=== PATIENT | female | born 1995 | race Hispanic/Latino ===

== ENCOUNTER → 2020-08-26 15:47 | Outpatient (CLI) | payer OTHER, SELFPAY ==
[2020-08-26 17:25] LABS: Hemoglobin A1C% w Est Avg Glu 5.9 % (4.0-6.0)
[2020-08-26 17:36] LABS: Luteinizing Hormone 8.82 mIU/mL
[2020-08-26 17:38] LABS: Free T4, Direct Thyroxine 1.06 ng/dL (0.78-2.19)
[2020-08-26 17:51] LABS: Thyroid Stimulating Hormone 1.68 uIU/mL (0.47-4.68)
[2020-08-30 07:10] LABS: Percent Free Testosterone 2.45 % (0.50-2.80); Testosterone Free 2.19 ng/dL (0.10-0.85); Testosterone Total 89.5 ng/dL (10.0-55.0)
== END ==
PROVIDERS: Referring Provider Obstetrics & Gynecology; Visit Provider Obstetrics & Gynecology
DX: E28.2 Polycystic ovarian syndrome (principal); N92.0 Excessive and frequent menstruation with regular cycle; N92.6 Irregular menstruation, unspecified; L83 Acanthosis nigricans
CPT/HCPCS: 36415; 83001; 83002; 83036; 84402; 84403; 84439; 84443

== ENCOUNTER → 2020-09-04 08:00 | Outpatient (CLI) | payer OTHER, SELFPAY ==
[2020-09-04 10:02] LABS: Glucose 107 mg/dL (70-100)
[2020-09-06 05:50] LABS: Insulin Level Total 91.4 uIU/mL (2.6-24.9)
== END ==
PROVIDERS: Referring Provider Obstetrics & Gynecology; Visit Provider Obstetrics & Gynecology
DX: E28.8 Other ovarian dysfunction (principal); E28.2 Polycystic ovarian syndrome
CPT/HCPCS: 36415; 82627; 82947; 83498; 83525

== ENCOUNTER → 2020-11-26 08:07 | Outpatient (CLI) | payer OTHER, SELFPAY ==
[2020-11-26 09:34] LABS: COVID19 -Nasal RAPID Negative (Negative)
== END ==
PROVIDERS: Visit Provider Obstetrics & Gynecology
DX: Z01.812 Encounter for preprocedural laboratory examination (principal); Z20.822 Contact with and (suspected) exposure to COVID-19
CPT/HCPCS: 87635

== ENCOUNTER 2020-11-26 10:04 | Day surgery (SDC) | payer OTHER, SELFPAY ==
[2020-11-22 13:58] VITALS: BMI 43.3
--- NOTE | 2020-11-26 | PATH_ITS ---
[facility] Accession Number: [id number] . 01 Material submitted: . endometrium - ENDOMETRIAL CURETTINGS . 01 Diagnosis: Endometrium, Curettage: Primarily blood. Scant disordered proliferative endometrium. Negative for atypical hyperplasia and malignancy. [facility] 11/28/2020 1813 Local . 01 Comment: Given the relative scantiness of the specimen, consideration should be given to the possibility that it may not be outbound call center representative. . 01 Electronically signed: . Kaley Zabala MD, Pathologist NPI- [id number] . 01 Gross description: . ENDOMETRIAL CURETTINGS: Received in formalin are minute fragments of mucoid and hemorrhagic material measuring 2.6 x 1.4 x 0.3 cm in aggregate. Submitted in toto in 1 cassette. /MCKENZIE 11/27/2020 0222 Local . 01 Pathologist provided ICD-10: N94.9 . 01 CPT . 296906 Performed at: 01 [facility] [address] [place] [address], [place], [place] [id number] MD Caesar Templeton MD Phone: [phone]
[2020-11-26 10:22] VITALS: BP 127/89; PULSE 75; RESP 16; TEMP 36.6; O2SAT 97; BMI 43.3
[2020-11-26] MEDS: LACTATED RINGERS 1,000 ML 100 ML IV (10:55)
--- NOTE | 2020-11-26 11:53 | PM.HP.1 ---
History of Present Illness History of Present Illness Date Patient Seen: 11/26/20 Time Patient Seen: 11:53 Chief complaint: CAC Narrative: Patient is a 25-year-old 1 para 1 who presents for D&C hysteroscopy and polypectomy due to menorrhagia and an endometrial polyp. Patient History Medical History (Updated 10/14/20 @ 22:58 by Margarita Prakash) Acanthosis nigricans Acquired hypothyroidism (~2017) Anxiety (~2016) History of gestational hypertension Surgical History (Updated 10/14/20 @ 22:58 by Margarita Prakash) Anesthesia History of section (~12/18/18) History of surgical removal of pilonidal cyst S/P wisdom tooth extraction Family & Social History Social History: household members spouse Tobacco & Substance use: Smoking Status Never smoker alcohol intake never Substance Use Type does not use Meds Home Medications and Allergies Home Medications Medication Instructions Recorded Confirmed Type metformin 500 mg tablet 500 mg PO DAILY #30 tab 09/26/20 11/26/20 Rx Allergies Allergy/AdvReac Type Severity Reaction Status Date / Time No Known Drug Allergies Allergy Verified 11/26/20 10:22 Exam Vital Signs (past 8 hours): - 11/26/20 10:22 Temperature 98 F Pulse Rate 75 Respiratory Rate 16 Blood Pressure 127/89 Pulse Oximetry 97 Oxygen Delivery Method Room Air Narrative Exam Narrative: HEENT: No thyromegaly, no anterior cervical or supraclavicular lymphadenopathy. Lungs:Clear to auscultation bilaterally, no wheezes. Cardiovascular: Regular rate and rhythm, no murmurs, rubs, or gallops. Abdomen: Well-healed Pfannenstiel scars. No hepatosplenomegaly. No masses palpable. External genitalia: Normal Vagina: Normal Cervix: Normal Bimanual exam: 7 Week size uterus. Mobile.] Assessment & Plan Assessment & Plan narrative: Assessment: 25-year-old 1 para 1 with menorrhagia and an endometrial polyp Plan: D&C hysteroscopy with polypectomy The risks, benefits, and alternatives to the procedure were explained to the patient. The risks including bleeding, infection, and uterine perforation. She understands the risks and agrees to proceed. A full par Q was held and consent form was signed. COVID-19 COVID-19 status: Negative Result date/Date tested (Pos, Neg/Pending): 11/26/20 Time Spent With Patient Time with patient: less than 30 minutes Critical Care time: I spent a total of [] minutes of critical care time on this patient's care today; this time is exclusive of procedural time.
--- NOTE | 2020-11-26 11:55 | PM.PREOP ---
Pre-operative Note COVID-19 COVID-19 status: Negative Result date/Date tested (Pos, Neg/Pending): 11/26/20 Interval Note History & Physical reviewed/Exam performed by Physician: Yes Changes to H&P: No H&P completed within 30 days and has changed as indicated here:: 11/26/20
--- NOTE | 2020-11-26 12:30 | SUR.OPER ---
Lithotomy on padded OR bed, head on pillow, arms secured on padded arm boards at <90 degrees abduction. Legs secured in padded yellow fins stirrups.
--- NOTE | 2020-11-26 12:51 | P.OP_ITS ---
Operative Date/Time/Diagnoses Date of procedure: 11/26/20 Time of procedure: 12:52 Pre-op diagnosis: Menorrhagia Endometrial polyp by office endometrial biopsy Post-op diagnosis: same Procedure & Clinicians Procedure: Procedures Operation Date: 11/26/20 11:15 Actual Procedure Side Surgeon karla Hysteroscopy D&C Rula Ballard MD Indications: Menorrhagia Endometrial polyp by endometrial biopsy in the office Surgeon: Rula Ballard Anesthesia Type: General (LMA) Operative Notes Findings: 7 week size anteverted uterus Both fallopian tube ostia observed Thickened posterior endometrium No polyps or fibroids observed Closure Type: not applicable Specimen(s): endometrial curettings Estimated blood loss (mL): 10 Blood products transfused: none Procedure in detail: After informed consent was obtained, the patient was taken to the operating room where she was placed in the dorsal supine position. After adequate LMA general anesthesia was achieved, she was placed in the dorsal lithotomy position, and prepped and draped in the usual sterile fashion. A time-out was performed. A bivalve speculum was placed into the vagina and the anterior lip of the cervix grasped with a single-tooth tenaculum. The cervical os was sequentially dilated until the hysteroscope could pass easily into the endometrial cavity. Initial inspection with the hysteroscope revealed both fallopian tube ostia. On the posterior uterus there was thickened endometrial lining. No polyps or fibroids were observed. Hysteroscope was removed. Sharp curettage was performed yielding a large amount of endometrial curettings. The instruments were removed from the uterus. The single-tooth tenaculum was removed from the anterior lip of the cervix. The bivalve speculum was removed from the vagina. Sponge, lap, and instrument counts were correct x2. The p atient tolerated the procedure well, was taken to PACU in stable condition. Complications: none Post-operative Condition: stable Disposition: PACU Plan for aftercare: Home after recovery
[2020-11-26 12:53] VITALS: BP 89/44; PULSE 55; RESP 14; TEMP 37; O2SAT 92
[2020-11-26 12:58] VITALS: BP 88/55; PULSE 56; RESP 14; O2SAT 92
[2020-11-26 13:03] VITALS: BP 88/51; PULSE 62; RESP 16; O2SAT 93
[2020-11-26 13:09] VITALS: BP 99/65; PULSE 58; RESP 18; TEMP 36.9; O2SAT 92
--- NOTE | 2020-11-26 13:21 | SUR.PHASEII ---
patient in phase 2 recovery. [facility]. denies cramping or pain. denies nausea. converses appropriately with staff. scant drainage on dannie pad. states feels ready for dc. mom called. dc instructions given. questions invited and answered. states understanding.
== END 2020-11-26 13:44 | disposition home or self-care (01) ==
PROVIDERS: Referring Provider Obstetrics & Gynecology; Visit Provider Obstetrics & Gynecology
PROC: 0UDB8ZZ Extraction of Endometrium, Via Natural or Artificial Opening Endoscopic (ICD-10-PCS; CPT 58558; principal; 2020-11-26 11:15)
DX: N92.0 Excessive and frequent menstruation with regular cycle (principal); R93.89 Abnormal findings on diagnostic imaging of other specified body structures; E11.9 Type 2 diabetes mellitus without complications; Z79.84 Long term (current) use of oral hypoglycemic drugs; Z20.822 Contact with and (suspected) exposure to COVID-19
CPT/HCPCS: 58558; 81025; 82962; 87635; J1885; J2405; J2704; J3010

== ENCOUNTER → 2020-11-30 13:28 | Outpatient (CLI) | payer OTHER, SELFPAY ==
[2020-11-30 13:58] LABS: COVID19 -Nasal RAPID POSITIVE (Negative)
== END ==
PROVIDERS: Visit Provider Physician Assistant
DX: U07.1 COVID-19 (principal)
CPT/HCPCS: 87635

== ENCOUNTER → 2021-09-29 10:56 | Outpatient (CLI) | payer OTHER, SELFPAY ==
--- NOTE | 2021-09-29 10:57 | DI.RAD.S_ITS ---
PROCEDURE: XR FOOT LT MIN 3V INDICATIONS: susp plantar fasciitis - heel spur? TECHNIQUE: 3 views of the foot were acquired. COMPARISON: None. FINDINGS: Bones: No fractures or dislocations. No suspicious bony lesions. Possible/equivocal tiny developing plantar calcaneal spur. No definite or large plantar spur demonstrated. Soft tissues: No tibiotalar joint effusion. Achilles tendon appears normal. IMPRESSION: Possible/equivocal tiny developing plantar calcaneal spur. No definite or large plantar spur demonstrated. Dictated by: Dick Salvador M.D. on 09/29/2021 at 14:06 Approved by: Dick Salvador M.D. on 09/29/2021 at 14:17
[2021-09-29 12:34] LABS: Bacteria Urine None Seen; Culture Indicated Urine Cult Not Indicated; RBC Urine 0-1/HPF (0-5/HPF); Squamous Epithelial Cell Urine 5-10 /HPF (0-5/HPF); WBC Urine 0-1/HPF (0-5/HPF)
[2021-09-29 13:07] LABS: Add Manual Diff / Slide Review NO; Basophils Absolute Auto 0 /uL (0-100); Basophils Percent Auto 0.3 % (0-2); Eosinophils Absolute Auto 100 /uL (0-450); Eosinophils Percent Auto 1.7 % (2-4); Hematocrit 36.8 % (36-46); Hemoglobin 11.8 g/dL (12.0-16.0); Lymphocytes Absolute Auto 2700 /uL (1100-4500); Lymphocytes Percent Auto 33.1 % (25-40); Mean Corpuscular HGB Conc 32.2 % (30-36); Mean Corpuscular Hemoglobin 21.9 PG (26-34); Mean Corpuscular Volume 68.1 fL (80-100); Monocytes Absolute Auto 700 /uL (0-900); Monocytes Percent Auto 8.2 % (3-14); Neutrophils Absolute Auto 4600 /uL (1500-7000); Neutrophils Percent Auto 56.7 % (50-75); Platelet Count 315 X10^3/uL (150-400); Red Cell Distribution Width 19.5 % (11.6-14.8); White Blood Cell Count 8.2 X10^3/uL (4.5-11.0)
[2021-09-29 13:12] LABS: Hemoglobin A1C% w Est Avg Glu 5.8 % (4.0-6.0)
[2021-09-29 13:30] LABS: Alanine Aminotransferase 381 IU/L (<35); Albumin 4.3 g/dL (3.5-5.0); Albumin Globulin Ratio 1.3 (1.0-2.8); Alkaline Phosphatase 93 U/L (38-126); Aspartate Aminotransferase 331 IU/L (14-36); BUN Creatinine Ratio 10.9 (6-22); Bilirubin Total 0.3 mg/dL (0.2-1.3); Blood Urea Nitrogen 6 mg/dL (7-17); Calcium 9.1 mg/dL (8.4-10.2); Carbon Dioxide 23 mmol/L (22-32); Chloride 107 mmol/L (98-107); Cholesterol 200 mg/dL (140-199); Estimated Glomerular Filt Rate > 60 mL/min (>60); Globulin 3.3 g/dL (1.7-4.1); Glucose 82 mg/dL (70-100); HDL Cholesterol 50 mg/dL (40-60); HEMOLYSIS < 15 (0-50); LDL Cholesterol Calculated 129 mg/dL (<100); Potassium 4.2 mmol/L (3.4-5.1); Sodium 141 mmol/L (137-145); Total Protein 7.6 g/dL (6.3-8.2); Triglycerides 106 mg/dL (35-150)
[2021-09-29 13:57] LABS: TSH w/ Reflex to FT4 4.41 uIU/mL (0.47-4.68)
[2021-09-29 13:59] LABS: Hypochromasia 1+; Microcytosis 2+
[2021-09-29 17:37] LABS: Hep C Virus Ab w/Reflex Quant NEGATIVE s/c (NEGATIVE)
== END ==
PROVIDERS: PCP Pediatrics; Referring Provider Pediatrics; Visit Provider Pediatrics
DX: E28.2 Polycystic ovarian syndrome (principal); R73.03 Prediabetes; L83 Acanthosis nigricans; M72.2 Plantar fascial fibromatosis; N92.6 Irregular menstruation, unspecified
CPT/HCPCS: 36415; 73630; 80053; 80061; 81015; 83036; 84443; 85025; 86803

== ENCOUNTER → 2022-05-13 10:38 | Outpatient (CLI) | payer OTHER, SELFPAY ==
--- NOTE | 2022-05-13 10:40 | DI.US.S_ITS ---
PROCEDURE: US PELVIC COMPLETE INDICATIONS: PCOS TECHNIQUE: Real-time scanning was performed of the pelvic organs, with image documentation. Additional endovaginal scanning was necessary due to incomplete visualization of the adnexal and endometrial structures by transabdominal scanning. COMPARISON: [facility], US, US PELVIC COMPLETE, 08/26/2020, 15:24. FINDINGS: Uterus: Uterus is anteverted and normal in size at 9.4 x 4.7 x 4.5 cm. The myometrium is homogeneous. The endometrium measures 7 mm combined thickness. Scarring is seen at the anterior lower uterine segment related to prior section. Ovaries: The right ovary measures 2.5 x 3.4 x 2.8 cm, with a calculated ovarian volume of 12.7 cc. The left ovary measures 3.1 x 2.1 x 3.6 cm, with a calculated ovarian volume of 11.9 cc. The ovaries have a normal sonographic appearance. Greater than 12 small follicles can be seen in each ovary. No adnexal masses are seen. Other: No pathologic free abdominal or pelvic fluid. IMPRESSION: Mildly enlarged ovaries with multiple small follicles can be seen in the setting of polycystic ovarian syndrome. We strive to produce accurate, complete, and clear reports of imaging services. To assist us in improving patient care, this report was composed using standard report templates and voice recognition software. Therefore, it may contain abnormal punctuation, insertions and/or omissions. Occasional wrong-word or sound-alike substitutions may occur. Though we review the report and make efforts to correct it, we do recommend that the report be read carefully in proper context to recognize any text inaccuracies. Approved by: Dick Walker M.D. on 05/13/2022 at 16:39
== END ==
PROVIDERS: PCP Family Medicine; Referring Provider Obstetrics & Gynecology; Visit Provider Obstetrics & Gynecology
DX: E28.2 Polycystic ovarian syndrome (principal)
CPT/HCPCS: 76830; 76856

== ENCOUNTER → 2022-11-27 16:59 | Outpatient (CLI) | payer OTHER, SELFPAY ==
[2022-11-27 17:55] LABS: Free T4, Direct Thyroxine 1.29 ng/dL (0.78-2.19)
== END ==
PROVIDERS: PCP Family Medicine; Referring Provider Obstetrics & Gynecology; Visit Provider Obstetrics & Gynecology
DX: N97.0 Female infertility associated with anovulation (principal)
CPT/HCPCS: 36415; 84439; 84443